=== PATIENT | female | born 1955 | race African-American/Black ===

== ENCOUNTER 2021-09-02 14:33 | Emergency (ER) | payer BC, OTHER ==
[~2021-09-02] VITALS: Ht 160 cm; Wt 100.0 kg
[~2021-09-02 14:33] MED LIST: IBUPROFEN; NAPR-1176
[2021-09-02 14:41] VITALS: BP 144/84
[2021-09-02] MEDS ORDERED: ALBUTEROL (0.083%) 2.5MG/3ML NEB HHN STA (14:45)
[2021-09-02] MEDS ORDERED: IPRATROPIUM BROMIDE (0.02%) 0.5MG/2.5ML NEB HHN STA (14:45)
== END 2021-09-03 00:19 | disposition left against medical advice (07) ==
LOC: ER 14:33
DX: J06.9 Acute upper respiratory infection, unspecified (principal)
CPT/HCPCS: 71045; 93005; 99283

== ENCOUNTER 2022-09-18 05:16 | Inpatient (IN) | payer OTHER, BC, MEDICAID ==
[~2022-09-18] VITALS: Ht 170.2 cm; Wt 102.1 kg
[2022-09-18] MEDS ORDERED: MAGNESIUM 2 G PREMIX 50 ML IV STA (05:25)
[2022-09-18] MEDS ORDERED: METHYLPREDNISOLONE SOD SUCC 125 MG/2 ML VIAL IV STA (05:25)
[2022-09-18] MEDS ORDERED: IPRATROPIUM BROMIDE (0.02%) 0.5MG/2.5ML NEB HHN STA (05:25)
[2022-09-18] MEDS ORDERED: ALBUTEROL (0.083%) 2.5MG/3ML NEB HHN STA (05:25)
[2022-09-18 06:01] LABS: BG BASE EXCESS 0.3 mmol/L (-2.0-2.0); BG CARBOXYHEMOGLOBIN 0.9 % (0.5-1.5); BG FRACTION INSPIRED OXYGEN 50; BG HCO3 ACT 27.2 mmol/L (22.0-26.0); BG METHEMOGLOBIN 0.4 % (0.0-1.5); BG OXYHEMOGLOBIN 97.7 % (94.0-97.0); BG PCO2 52.7 mmHg (35.0-45.0); BG PH 7.331 (7.350-7.450); BG SAMPLE SITE RIGHT RADIAL; BG TOTAL HEMOGLOBIN 15.2 g/dL (12.0-18.0); BG VENT MODE MASK - BIPAP
[2022-09-18 06:07] LABS: CHLORIDE 107 mEq/L (98-107)
[2022-09-18 08:40] LABS: BASOPHILS % 0.5 % (0.0-2.0); EOSINOPHILS % 1.3 % (0.0-5.0); HEMATOCRIT. 41.5 % (36.0-48.0); HEMOGLOBIN. 14.1 g/dL (12.0-16.0); LYMPHOCYTES % 14.5 % (20.0-50.0); MEAN CORPUSCULAR HEMOGLOBIN 30.4 pg (28.0-32.0); MEAN CORPUSCULAR VOLUME 89.4 fL (81.0-99.0); MEAN PLATELET VOLUME 8.9 fl (7.4-10.4); MONOCYTES % 2.2 % (2.0-8.0); NEUTROPHILS % 81.5 % (40.0-76.0); PLATELET 254 x1000/uL (130-400); RED BLOOD CELL COUNT 4.63 mill/uL (4.2-5.4); RED CELL DISTRIBUTION WIDTH 13.9 % (11.6-14.6)
[2022-09-18] MEDS ORDERED: IPRATROPIUM/ALBUTEROL 0.5-3(2.5)MG/3ML NEB HHN SCH (16:45)
[2022-09-18] MEDS ORDERED: ACETAMINOPHEN 325MG TABLET PO PRN (16:45)
[2022-09-18] MEDS ORDERED: ONDANSETRON HCL 4MG/2ML INJ IV PRN (16:45)
[2022-09-18] MEDS ORDERED: CLONIDINE 0.1MG TABLET PO PRN (16:45)
[2022-09-18] MEDS ORDERED: AZITHROMYCIN 500MG/250ML 250 ML IV NR (17:00)
[2022-09-18] MEDS ORDERED: CEFTRIAXONE 1 G PREMIX 50 ML IV SCH (17:00)
[2022-09-18] MEDS: METHYLPREDNISOLONE SOD SUCC 40 MG/ML VIAL IV SCH (17:22)
[2022-09-19 00:14] LABS: CREATINE KINASE 54 IU/L (26-192); CREATINE KINASE MB FRACTION < 1.0 ng/mL (0.5-3.6)
[2022-09-19] MEDS: METHYLPREDNISOLONE SOD SUCC 40 MG/ML VIAL IV SCH ×3 (01:00→17:51)
[2022-09-19] MEDS: IPRATROPIUM BROMIDE (0.02%) 0.5MG/2.5ML NEB HHN SCH ×9 (01:00→23:37)
[2022-09-19] MEDS: ALBUTEROL (0.083%) 2.5MG/3ML NEB HHN SCH ×9 (01:00→23:37)
[2022-09-19 05:04] LABS: BASOPHILS % 0.7 % (0.0-2.0); EOSINOPHILS % 0.1 % (0.0-5.0); HEMATOCRIT. 38.6 % (36.0-48.0); HEMOGLOBIN. 12.9 g/dL (12.0-16.0); LYMPHOCYTES % 18.5 % (20.0-50.0); MEAN CORPUSCULAR HEMOGLOBIN 29.8 pg (28.0-32.0); MEAN PLATELET VOLUME 8.9 fl (7.4-10.4); MONOCYTES % 6.7 % (2.0-8.0); PLATELET 247 x1000/uL (130-400); RED BLOOD CELL COUNT 4.34 mill/uL (4.2-5.4)
[2022-09-19 05:37] LABS: CHLORIDE 105 mEq/L (98-107)
[2022-09-19 05:51] LABS: CREATINE KINASE 45 IU/L (26-192); CREATINE KINASE MB FRACTION < 1.0 ng/mL (0.5-3.6)
[2022-09-19 08:06] LABS: BG BASE EXCESS 4.5 mmol/L (-2.0-2.0); BG CARBOXYHEMOGLOBIN 0.3 % (0.5-1.5); BG DEOXYHEMOGLOBIN 5.8 % (0.0-5.0); BG HCO3 ACT 29.4 mmol/L (22.0-26.0); BG METHEMOGLOBIN 0.1 % (0.0-1.5); BG OXYGEN SATURATION 94.2 % (92.0-98.5); BG OXYHEMOGLOBIN 93.8 % (94.0-97.0); BG PCO2 44.6 mmHg (35.0-45.0); BG PH 7.437 (7.350-7.450); BG PO2 71.8 mmHg (75.0-100.0); BG SAMPLE SITE RIGHT RADIAL; BG TOTAL HEMOGLOBIN 15.6 g/dL (12.0-18.0); BG TOTAL RESPIRATORY RATE 20 b/min; BG VENT MODE MASK - BIPAP
[2022-09-19] MEDS: PANTOPRAZOLE SODIUM 40 MG/VIAL IV SCH (09:00)
[2022-09-19 13:37] VITALS: BP 164/83
[2022-09-19 14:00] VITALS: BP 126/70
[2022-09-19 16:00] VITALS: BP 127/60
[2022-09-19] MEDS ORDERED: AZITHROMYCIN 500 MG in DEXT 5% WATER 250 ML IV SCH (17:00)
[2022-09-19] MEDS: CEFTRIAXONE 1,000 MG in DEXTROSE 5% WATER 50 ML IV SCH (17:51)
[2022-09-19 18:00] VITALS: BP 129/77
[2022-09-19 20:00] VITALS: BP 115/63
[2022-09-19] MEDS: AZITHROMYCIN 500 MG in DEXT 5% WATER 250 ML IV SCH (21:30)
[2022-09-20] VITALS (10 sets, daily range): BP systolic 119–145; BP diastolic 55–82
[2022-09-20] MEDS: METHYLPREDNISOLONE SOD SUCC 40 MG/ML VIAL IV SCH ×3 (00:37→16:53)
[2022-09-20] MEDS: IPRATROPIUM BROMIDE (0.02%) 0.5MG/2.5ML NEB HHN SCH ×4 (04:01→20:24)
[2022-09-20] MEDS: ALBUTEROL (0.083%) 2.5MG/3ML NEB HHN SCH ×4 (04:01→20:25)
[2022-09-20] MEDS: PANTOPRAZOLE SODIUM 40 MG/VIAL IV SCH (08:39)
[2022-09-20] MEDS: CEFTRIAXONE 1,000 MG in DEXTROSE 5% WATER 50 ML IV SCH (16:52)
[2022-09-20] MEDS: AZITHROMYCIN 500 MG in DEXT 5% WATER 250 ML IV SCH (20:54)
[2022-09-21] VITALS (7 sets, daily range): BP systolic 117–146; BP diastolic 53–89
[2022-09-21] MEDS: IPRATROPIUM BROMIDE (0.02%) 0.5MG/2.5ML NEB HHN SCH ×4 (00:18→12:50)
[2022-09-21] MEDS: ALBUTEROL (0.083%) 2.5MG/3ML NEB HHN SCH ×4 (00:18→12:50)
[2022-09-21] MEDS: METHYLPREDNISOLONE SOD SUCC 40 MG/ML VIAL IV SCH ×2 (00:48→10:16)
[2022-09-21] MEDS ORDERED: FAMOTIDINE 20MG/2ML VIAL IV SCH (09:00)
[2022-09-21] MEDS ORDERED: P20 MT (09:58)
== END 2022-09-21 20:21 | disposition home or self-care (01) | DRG 189 ==
LOC: ER 05:16 → EDBEDREQTM 08:46 → EDBEDREQ 08:46 → 5EST 09-19 12:57
PROVIDERS: ADMIT Internal Medicine; ATTEND Internal Medicine
PROC: 5A09357 Assistance with Respiratory Ventilation, Less than 24 Consecutive Hours, Continuous Positive Airway Pressure (ICD-10-PCS; principal; 2022-09-18)
DX: J96.01 Acute respiratory failure with hypoxia (principal); J44.1 Chronic obstructive pulmonary disease with (acute) exacerbation; J96.02 Acute respiratory failure with hypercapnia; Z20.822 Contact with and (suspected) exposure to COVID-19; R94.4 Abnormal results of kidney function studies; E66.9 Obesity, unspecified; Z79.899 Other long term (current) drug therapy; Z68.35 Body mass index [BMI] 35.0-35.9, adult; Z87.891 Personal history of nicotine dependence
CPT/HCPCS: 36415; 36600; 71045; 80048; 80053; 82375; 82550; 82553; 82805; 83880; 84484; 85025; 85379; 87426; 87804; 93005; 93306; 93970; 94640; 94660; 99291; C9113; C9803; J0456; J0696; J2405; J2920; J2930; J3475; J3490; J7060

== ENCOUNTER 2022-11-17 22:16 | Inpatient (IN) | payer OTHER, BC, MEDICAID ==
[~2022-11-17] VITALS: Ht 160 cm; Wt 102.1 kg
[~2022-11-17 22:16] MED LIST changes: +ALBUTEROL; +ATOR40TA70 PO; +FLUT1DIS3 INH; +P20 MT
[2022-11-18 00:21] LABS: BASOPHILS % 0.8 % (0.0-2.0); EOSINOPHILS % 5.5 % (0.0-5.0); HEMATOCRIT. 40.1 % (36.0-48.0); HEMOGLOBIN. 13.3 g/dL (12.0-16.0); LYMPHOCYTES % 49.4 % (20.0-50.0); MEAN CORPUSCULAR HEMOGLOBIN 30.1 pg (28.0-32.0); MEAN PLATELET VOLUME 8.8 fl (7.4-10.4); MONOCYTES % 6.4 % (2.0-8.0); NEUTROPHILS % 37.9 % (40.0-76.0); PLATELET 268 x1000/uL (130-400); RED BLOOD CELL COUNT 4.41 mill/uL (4.2-5.4); RED CELL DISTRIBUTION WIDTH 14.2 % (11.6-14.6)
[2022-11-18 00:49] LABS: CHLORIDE 106 mEq/L (98-107)
[2022-11-18] MEDS ORDERED: METHYLPREDNISOLONE SOD SUCC 125 MG/2 ML VIAL IV STA (03:28)
[2022-11-18] MEDS ORDERED: IPRATROPIUM BROMIDE (0.02%) 0.5MG/2.5ML NEB HHN STA (03:28)
[2022-11-18] MEDS ORDERED: MAGNESIUM 2 G PREMIX 50 ML IV ONE (03:30)
[2022-11-18] MEDS: ALBUTEROL (0.083%) 2.5MG/3ML NEB HHN SCH ×4 (04:37→22:00)
[2022-11-18 12:00] VITALS: BP 113/65
[2022-11-18] MEDS ORDERED: ALBU90AE INH (12:27)
[2022-11-18] MEDS ORDERED: LEVO-65 MT (12:28)
[2022-11-18] MEDS ORDERED: IPRATROPIUM/ALBUTEROL 0.5-3(2.5)MG/3ML NEB HHN SCH (12:45)
[2022-11-18] MEDS ORDERED: ONDANSETRON HCL 4MG/2ML INJ IV PRN (12:45)
[2022-11-18] MEDS: ENOXAPARIN 30MG/0.3ML SYR SUBCUT SCH (14:21)
[2022-11-18] MEDS: LEVOFLOXACIN 500MG PREMIX 100 ML IV SCH (14:22)
[2022-11-18 16:00] VITALS: BP 127/55
[2022-11-18 17:08] LABS: CREATINE KINASE MB FRACTION 1.3 ng/mL (0.5-3.6)
[2022-11-18 20:00] VITALS: BP 115/59
[2022-11-18] MEDS: ACETAMINOPHEN 325MG TABLET PO PRN (20:12)
[2022-11-18] MEDS: IPRATROPIUM BROMIDE (0.02%) 0.5MG/2.5ML NEB HHN SCH ×2 (20:35→22:00)
[2022-11-18 23:55] LABS: CREATINE KINASE MB FRACTION 1.1 ng/mL (0.5-3.6)
[2022-11-19] VITALS: BP 136/70
[2022-11-19] MEDS: IPRATROPIUM BROMIDE (0.02%) 0.5MG/2.5ML NEB HHN SCH ×5 (01:49→21:01)
[2022-11-19] MEDS: ALBUTEROL (0.083%) 2.5MG/3ML NEB HHN SCH ×5 (01:49→21:01)
[2022-11-19 04:00] VITALS: BP 127/63
[2022-11-19] MEDS: ENOXAPARIN 30MG/0.3ML SYR SUBCUT SCH ×2 (05:13→17:09)
[2022-11-19 07:33] LABS: BG BASE EXCESS 3.7 mmol/L (-2.0-2.0); BG CARBOXYHEMOGLOBIN 0.1 % (0.5-1.5); BG DEOXYHEMOGLOBIN 7.4 % (0.0-5.0); BG HCO3 ACT 29.9 mmol/L (22.0-26.0); BG METHEMOGLOBIN 0.2 % (0.0-1.5); BG OXYGEN SATURATION 92.6 % (92.0-98.5); BG OXYHEMOGLOBIN 92.3 % (94.0-97.0); BG PCO2 51.4 mmHg (35.0-45.0); BG PH 7.382 (7.350-7.450); BG SAMPLE SITE RIGHT RADIAL; BG TOTAL HEMOGLOBIN 14.2 g/dL (12.0-18.0); BG VENT MODE ROOM AIR
[2022-11-19 08:00] VITALS: BP 125/68
[2022-11-19 12:19] VITALS: BP 106/66
[2022-11-19] MEDS: LEVOFLOXACIN 500MG PREMIX 100 ML IV SCH (12:58)
[2022-11-19] MEDS: METHYLPREDNISOLONE SOD SUCC 40 MG/ML VIAL IV SCH ×2 (12:58→21:01)
[2022-11-19 20:01] VITALS: BP 128/72
[2022-11-19] MEDS ORDERED: IOHEXOL-350 100 ML BOTTLE ONE (20:50)
[2022-11-20 00:01] VITALS: BP 144/79
[2022-11-20] MEDS: ALBUTEROL (0.083%) 2.5MG/3ML NEB HHN SCH ×3 (00:24→10:46)
[2022-11-20] MEDS: IPRATROPIUM BROMIDE (0.02%) 0.5MG/2.5ML NEB HHN SCH ×3 (00:24→10:47)
[2022-11-20 03:55] VITALS: BP 116/53
[2022-11-20] MEDS: METHYLPREDNISOLONE SOD SUCC 40 MG/ML VIAL IV SCH ×2 (04:02→12:19)
[2022-11-20] MEDS: ACETAMINOPHEN 325MG TABLET PO PRN (04:02)
[2022-11-20] MEDS: ENOXAPARIN 30MG/0.3ML SYR SUBCUT SCH (05:16)
[2022-11-20 08:00] VITALS: BP 138/78
[2022-11-20 12:00] VITALS: BP 120/63
[2022-11-20] MEDS ORDERED: P20 MT (12:27)
[2022-11-20 13:35] VITALS: BP 120/63
[2022-11-20] MEDS ORDERED: LEVOFLOXACIN 500MG TABLET PO SCH (14:00)
== END 2022-11-20 15:45 | disposition home or self-care (01) | DRG 192 ==
LOC: ER 22:16 → 7WST 11-18 06:16
PROVIDERS: ADMIT Internal Medicine; ATTEND Internal Medicine
DX: J44.1 Chronic obstructive pulmonary disease with (acute) exacerbation (principal); I10 Essential (primary) hypertension; F17.200 Nicotine dependence, unspecified, uncomplicated; Z20.822 Contact with and (suspected) exposure to COVID-19; Z79.899 Other long term (current) drug therapy; Z79.51 Long term (current) use of inhaled steroids
CPT/HCPCS: 36415; 36600; 71045; 71275; 80053; 82375; 82550; 82553; 82805; 83605; 83880; 84484; 85025; 85379; 87426; 93005; 94640; 97162; 99285; C9803; J1650; J1956; J2920; J2930; J3475; Q9967

== ENCOUNTER 2023-08-27 14:16 | Emergency (ER) | payer OTHER, BC, MEDICAID, MEDICARE ==
[~2023-08-27] VITALS: Ht 165.1 cm; Wt 68.0 kg
[~2023-08-27 14:16] MED LIST changes: +ALBU90AE INH; -NAPR-1176
[2023-08-27 14:31] VITALS: TEMP 98.3; O2SAT 96
[2023-08-27] MEDS ORDERED: PREDNISONE 20MG TABLET PO ONE (15:30)
[2023-08-27] MEDS ORDERED: IPRATROPIUM/ALBUTEROL 0.5-3(2.5)MG/3ML NEB HHN ONE (15:30)
[2023-08-27] MEDS ORDERED: ALBUTEROL (0.083%) 2.5MG/3ML NEB HHN ONE (15:30)
[2023-08-27 15:45] VITALS: PULSE 76; RESP 19
[2023-08-27 16:21] LABS: HEMATOCRIT. 37.5 % (36.0-48.0); HEMOGLOBIN. 13.1 g/dL (12.0-16.0); MEAN CORPUSCULAR HEMOGLOBIN 31.3 pg (28.0-32.0); MEAN CORPUSCULAR VOLUME 89.5 fL (81.0-99.0); MEAN PLATELET VOLUME 8.6 fl (7.4-10.4); PLATELET 226 x1000/uL (130-400); RED BLOOD CELL COUNT 4.19 mill/uL (4.2-5.4); RED CELL DISTRIBUTION WIDTH 13.3 % (11.6-14.6); WHITE BLOOD COUNT 4.6 x1000/uL (4.5-11.0)
[2023-08-27 16:34] LABS: DIFFERENTIAL COMMENT 1
[2023-08-27 16:45] LABS: ATYPICAL LYMPHOCYTES 12; MICROCYTOSIS 1+; PLATELET ESTIMATE NORMAL; SMUDGE CELLS 1+
[2023-08-27] MEDS ORDERED: P50 MT (16:55)
[2023-08-27] MEDS ORDERED: ALBU6.7H15 INH (16:55)
[2023-08-27 17:02] LABS: ALANINE AMINOTRANSFERASE 24 IU/L (10-49); ASPARTATE AMINOTRANSFERASE 19 IU/L (<34); BILIRUBIN TOTAL 0.4 mg/dL (0.1-1.0); CALCIUM 8.7 mg/dL (8.7-10.4); CARBON DIOXIDE 29 mEq/L (21-32); CHLORIDE 107 mEq/L (98-107); CREATININE 0.6 mg/dL (0.6-1.0); GLUCOSE 114 mg/dL (70-105); POTASSIUM 3.3 mEq/L (3.5-5.1); SODIUM 143 mEq/L (136-145); TROPONIN I HIGH SENSITIVITY 4 ng/L (3.0-34); UREA NITROGEN BLOOD 10 mg/dL (9-23)
[2023-08-27] MEDS ORDERED: POTASSIUM CHLORIDE 20MEQ TABLET SR PO ONE (17:30)
[2023-08-27 19:02] VITALS: BP 121/65; PULSE 77
== END 2023-08-27 19:08 | disposition home or self-care (01) ==
LOC: ER 14:16
DX: J44.1 Chronic obstructive pulmonary disease with (acute) exacerbation (principal); F17.200 Nicotine dependence, unspecified, uncomplicated
CPT/HCPCS: 99285; 71045; 80053; 83880; 85025; 84484; 36415; 94640; 93005; J7512

== ENCOUNTER 2023-12-16 09:13 | Inpatient (IN) | payer OTHER, BC ==
[~2023-12-16] VITALS: Ht 160 cm; Wt 102.5 kg
[~2023-12-16 09:13] MED LIST changes: +ALBU6.7H15 INH; +P50 MT
[2023-12-16 09:25] VITALS: RESP 34
[2023-12-16] MEDS: METHYLPREDNISOLONE SOD SUCC 125MG/2ML (ACT-O-VIAL) IV STA (09:29)
[2023-12-16 09:32] VITALS: RESP 34
[2023-12-16] MEDS: ALBUTEROL (0.083%) 2.5MG/3ML NEB HHN STA (09:32)
[2023-12-16] MEDS: IPRATROPIUM BROMIDE (0.02%) 0.5MG/2.5ML NEB HHN STA (09:33)
[2023-12-16 09:36] LABS: EOSINOPHILS % 8.7 % (0.0-5.0); HEMATOCRIT. 42.3 % (36.0-48.0); HEMOGLOBIN. 14.4 g/dL (12.0-16.0); LYMPHOCYTES % 51.6 % (20.0-50.0); MEAN CORPUSCULAR HEMOGLOBIN 31.3 pg (28.0-32.0); MEAN CORPUSCULAR VOLUME 92.2 fL (81.0-99.0); MEAN PLATELET VOLUME 8.4 fl (7.4-10.4); MONOCYTES % 8.9 % (2.0-8.0); NEUTROPHILS % 29.8 % (40.0-76.0); PLATELET 226 x1000/uL (130-400); RED BLOOD CELL COUNT 4.59 mill/uL (4.2-5.4); RED CELL DISTRIBUTION WIDTH 13.8 % (11.6-14.6); WHITE BLOOD COUNT 5.7 x1000/uL (4.5-11.0)
[2023-12-16 09:54] LABS: ALANINE AMINOTRANSFERASE 57 IU/L (10-49); ALBUMIN 4.7 g/dL (3.2-4.8); ASPARTATE AMINOTRANSFERASE 30 IU/L (<34); BILIRUBIN TOTAL 1.1 mg/dL (0.1-1.0); CALCIUM 9.1 mg/dL (8.7-10.4); CARBON DIOXIDE 27 mEq/L (21-32); CHLORIDE 110 mEq/L (98-107); CREATININE 0.6 mg/dL (0.6-1.0); GLUCOSE 108 mg/dL (70-105); POTASSIUM 3.6 mEq/L (3.5-5.1); PROTEIN TOTAL 7.4 g/dL (6.0-8.3); SODIUM 141 mEq/L (136-145); TROPONIN I HIGH SENSITIVITY 10 ng/L (3.0-34); UREA NITROGEN BLOOD 8 mg/dL (9-23)
[2023-12-16 11:11] LABS: BG BASE EXCESS -1.4 mmol/L (-2.0-2.0); BG CARBOXYHEMOGLOBIN 0.4 % (0.5-1.5); BG DEOXYHEMOGLOBIN 1.7 % (0.0-5.0); BG FRACTION INSPIRED OXYGEN 50; BG METHEMOGLOBIN 0.4 % (0.0-1.5); BG OXYGEN SATURATION 98.3 % (92.0-98.5); BG OXYHEMOGLOBIN 97.5 % (94.0-97.0); BG PCO2 48.3 mmHg (35.0-45.0); BG PH 7.332 (7.350-7.450); BG PO2 141.1 mmHg (75.0-100.0); BG SAMPLE SITE RIGHT RADIAL; BG VENT MODE MASK - BIPAP
[2023-12-16 12:55] VITALS: RESP 22
[2023-12-16 16:01] VITALS: RESP 34
[2023-12-16] MEDS ORDERED: DOCUSATE SODIUM 100MG CAPSULE PO PRN (16:15)
[2023-12-16] MEDS ORDERED: CLONIDINE 0.1MG TABLET PO PRN (16:15)
[2023-12-16] MEDS ORDERED: DEXTROSE 50% WATER 50ML SYRINGE IV PRN (16:15)
[2023-12-16] MEDS ORDERED: ACETAMINOPHEN 325MG TABLET PO PRN (16:15)
[2023-12-16] MEDS ORDERED: ONDANSETRON HCL 4MG/2ML INJ IV PRN (16:15)
[2023-12-16] MEDS ORDERED: IPRATROPIUM/ALBUTEROL 0.5-3(2.5)MG/3ML NEB HHN PRN (16:15)
[2023-12-16 18:04] LABS: D-DIMER 0.77 mg/L FEU (<0.50); PROTHROMBIN TIME 11.1 sec (9.6-11.0)
[2023-12-16] MEDS: INSULIN LISPRO 100 UNITS/ML SUBCUT SCH (18:20)
[2023-12-16] MEDS: BLOOD SUGAR DIAGNOSTIC STRIP TEST SCH (18:25)
[2023-12-16 20:00] VITALS: RESP 25
[2023-12-17] VITALS (14 sets, daily range): BP systolic 116–135; BP diastolic 60–79; PULSE 67–90; RESP 15–25; TEMP 97.2–97.5; O2SAT 96–99
[2023-12-17 02:51] LABS: CREATINE KINASE MB FRACTION 1.7 ng/mL (0.5-3.6)
[2023-12-17] MEDS ORDERED: FLUT1BLS3 IH (04:52)
[2023-12-17] MEDS: IPRATROPIUM/ALBUTEROL 0.5-3(2.5)MG/3ML NEB HHN SCH (08:00)
[2023-12-17 08:01] LABS: EOSINOPHILS % 0.1 % (0.0-5.0); HEMOGLOBIN. 12.7 g/dL (12.0-16.0); LYMPHOCYTES % 24.2 % (20.0-50.0); MEAN CORPUSCULAR HEMOGLOBIN 30.5 pg (28.0-32.0); MEAN CORPUSCULAR HGB CONC 33.5 g/dL (31.0-37.0); MEAN PLATELET VOLUME 8.9 fl (7.4-10.4); NEUTROPHILS % 64.7 % (40.0-76.0); PLATELET 210 x1000/uL (130-400); RED BLOOD CELL COUNT 4.18 mill/uL (4.2-5.4); RED CELL DISTRIBUTION WIDTH 13.8 % (11.6-14.6)
[2023-12-17 08:23] LABS: ALANINE AMINOTRANSFERASE 44 IU/L (10-49); ALBUMIN 4.4 g/dL (3.2-4.8); ASPARTATE AMINOTRANSFERASE 19 IU/L (<34); BILIRUBIN TOTAL 0.6 mg/dL (0.1-1.0); CALCIUM 9.1 mg/dL (8.7-10.4); CARBON DIOXIDE 29 mEq/L (21-32); CHLORIDE 110 mEq/L (98-107); CREATINE KINASE 65 IU/L (34-145); CREATINE KINASE MB FRACTION 1.7 ng/mL (0.5-3.6); CREATININE 0.8 mg/dL (0.6-1.0); GLUCOSE 138 mg/dL (70-105); POTASSIUM 3.9 mEq/L (3.5-5.1); PROTEIN TOTAL 6.8 g/dL (6.0-8.3); SODIUM 141 mEq/L (136-145); UREA NITROGEN BLOOD 21 mg/dL (9-23)
[2023-12-17 08:54] LABS: TROPONIN I HIGH SENSITIVITY 57 ng/L (3.0-34)
[2023-12-17 13:45] LABS: BG BASE EXCESS 1.2 mmol/L (-2.0-2.0); BG FRACTION INSPIRED OXYGEN 21; BG HCO3 ACT 26.5 mmol/L (22.0-26.0); BG METHEMOGLOBIN 0.3 % (0.0-1.5); BG OXYHEMOGLOBIN 89.7 % (94.0-97.0); BG PCO2 44.3 mmHg (35.0-45.0); BG PH 7.394 (7.350-7.450); BG PO2 60.5 mmHg (75.0-100.0); BG SAMPLE SITE RIGHT RADIAL; BG TOTAL HEMOGLOBIN 13.8 g/dL (12.0-18.0); BG VENT MODE ROOM AIR
[2023-12-17] MEDS ORDERED: IOHEXOL-350 100 ML BOTTLE ONE (13:59)
[2023-12-17 15:40] LABS: CLARITY URINE CLEAR (CLEAR); COLOR URINE YELLOW (YELLOW); GLUCOSE URINE NEGATIVE (NEGATIVE); KETONES URINE NEGATIVE (NEGATIVE); LEUKOCYTE ESTERASE URINE NEGATIVE (NEGATIVE); NITRITE URINE NEGATIVE (NEGATIVE); OCCULT BLOOD URINE NEGATIVE (NEGATIVE); PROTEIN URINE NEGATIVE (NEGATIVE); SPECIFIC GRAVITY URINE 1.075 (1.005-1.030); UROBILINOGEN URINE 0.2 E.U./dL (0.2-1.0)
[2023-12-17 15:59] LABS: *AMPHETAMINES SCREEN URINE NEGATIVE (NEGATIVE); *BARBITURATES SCREEN URINE NEGATIVE (NEGATIVE); *BENZODIAZEPINES SCREEN URINE NEGATIVE (NEGATIVE); *COCAINE SCREEN URINE NEGATIVE (NEGATIVE); CANNABINOID URINE SCREEN NEGATIVE (NEGATIVE); ECSTASY MDMA SCREEN URINE NEGATIVE (NEGATIVE); METHADONE URINE SCREEN Neg (NEGATIVE); OPIATES URINE SCREEN NEGATIVE (NEGATIVE); PHENCYCLIDINE URINE SCREEN PRESUMTIVE POSITIVE (NEGATIVE)
[2023-12-17] MEDS: METHYLPREDNISOLONE SOD SUCC 40MG/ML (ACT-O-VIAL) IV NR (16:37)
[2023-12-17] MEDS: ACETAMINOPHEN 325MG TABLET PO PRN (17:39)
[2023-12-17] MEDS ORDERED: NYSTATIN 100,000 UNITS/GM CREAM 15GM TOP SCH (21:00)
== END 2023-12-17 20:00 | disposition home or self-care (01) | DRG 191 ==
LOC: ER 09:13 → 5EST 12:41 → EDBEDREQTM 12:44 → EDBEDREQ 12:44 → EDBEDREQSVC 12:44
PROVIDERS: ADMIT Internal Medicine; ATTEND Internal Medicine
PROC: 5A09357 Assistance with Respiratory Ventilation, Less than 24 Consecutive Hours, Continuous Positive Airway Pressure (ICD-10-PCS; principal; 2023-12-16)
DX: J44.1 Chronic obstructive pulmonary disease with (acute) exacerbation (principal); Z68.41 Body mass index [BMI] 40.0-44.9, adult; E66.9 Obesity, unspecified; Z20.822 Contact with and (suspected) exposure to COVID-19; Z87.891 Personal history of nicotine dependence; E78.00 Pure hypercholesterolemia, unspecified; R74.01 Elevation of levels of liver transaminase levels
CPT/HCPCS: 36415; 36600; 71045; 71275; 76700; 80053; 80305; 81003; 82375; 82550; 82553; 82805; 82962; 83880; 84484; 85025; 85379; 87426; 93005; 93970; 94640; 94660; 99291; J1815; J2920; J2930; Q9967

== ENCOUNTER 2025-05-31 20:05 | Emergency (ER) | payer MEDICARE, BC ==
[~2025-05-31] VITALS: Ht 172.7 cm; Wt 100.0 kg
[~2025-05-31 20:05] MED LIST changes: +FLUT1BLS3 IH
[2025-05-31 20:27] VITALS: O2SAT 100
[2025-05-31 21:18] LABS: BASOPHILS % 1.1 % (0.0-2.0); EOSINOPHILS % 2.8 % (0.0-5.0); HEMATOCRIT. 42.2 % (36.0-48.0); HEMOGLOBIN. 14.2 g/dL (12.0-16.0); LYMPHOCYTES % 31.6 % (20.0-50.0); MEAN PLATELET VOLUME 8.8 fl (7.4-10.4); MONOCYTES % 10.2 % (2.0-8.0); NEUTROPHILS % 54.3 % (40.0-76.0); PLATELET 262 x1000/uL (130-400); RED BLOOD CELL COUNT 4.75 mill/uL (4.2-5.4); RED CELL DISTRIBUTION WIDTH 13.5 % (11.6-14.6)
[2025-05-31 21:33] LABS: CREATININE 0.8 mg/dL (0.6-1.0); UREA NITROGEN BLOOD < 5 mg/dL (9-23)
[2025-05-31] MEDS: POTASSIUM CHLORIDE 20MEQ/PACKET PO SCH (22:19)
[2025-05-31 22:50] LABS: *AMPHETAMINES SCREEN URINE NEGATIVE (NEGATIVE); *BARBITURATES SCREEN URINE NEGATIVE (NEGATIVE); *BENZODIAZEPINES SCREEN URINE NEGATIVE (NEGATIVE); *COCAINE SCREEN URINE NEGATIVE (NEGATIVE); METHADONE URINE SCREEN NEGATIVE (NEGATIVE)
[2025-05-31 22:51] LABS: CANNABINOID URINE SCREEN NEGATIVE (NEGATIVE); ECSTASY MDMA SCREEN URINE NEGATIVE (NEGATIVE); OPIATES URINE SCREEN NEGATIVE (NEGATIVE); PHENCYCLIDINE URINE SCREEN PRESUMTIVE POSITIVE (NEGATIVE)
[2025-06-01] MEDS: ACETAMINOPHEN 500MG TABLET PO NR
[2025-06-01 00:28] VITALS: BP 151/89; PULSE 72; RESP 13; TEMP 36.8; O2SAT 97
== END 2025-06-01 00:56 | disposition home or self-care (01) ==
LOC: ER 20:05
DX: F16.10 Hallucinogen abuse, uncomplicated (principal); E78.00 Pure hypercholesterolemia, unspecified; J44.9 Chronic obstructive pulmonary disease, unspecified; Z79.899 Other long term (current) drug therapy
CPT/HCPCS: 36415; 71045; 80048; 80305; 80320; 85025; 93005; 99285; G0480

== ENCOUNTER 2025-07-28 14:10 | Inpatient (IN) | payer MEDICARE, BC ==
[~2025-07-28] VITALS: Ht 160 cm; Wt 104.3 kg
[2025-07-28] MEDS: ALBUTEROL (0.083%) 2.5MG/3ML NEB HHN SCH (14:36)
[2025-07-28 14:37] VITALS: PULSE 84; RESP 30; O2SAT 91
[2025-07-28] MEDS: IPRATROPIUM BROMIDE (0.02%) 0.5MG/2.5ML NEB HHN SCH (14:37)
[2025-07-28] MEDS: METHYLPREDNISOLONE SOD SUCC 125MG/2ML (ACT-O-VIAL) IV SCH ×2 (14:46→19:00)
[2025-07-28 15:41] VITALS: PULSE 95; RESP 26
[2025-07-28 15:54] LABS: BASOPHILS % 1.1 % (0.0-2.0); EOSINOPHILS % 3.4 % (0.0-5.0); HEMATOCRIT. 44.4 % (36.0-48.0); HEMOGLOBIN. 14.4 g/dL (12.0-16.0); LYMPHOCYTES % 29.4 % (20.0-50.0); MEAN PLATELET VOLUME 10.0 fl (7.4-10.4); MONOCYTES % 14.3 % (2.0-8.0); NEUTROPHILS % 51.8 % (40.0-76.0); PLATELET 218 x1000/uL (130-400); RED BLOOD CELL COUNT 4.91 mill/uL (4.2-5.4); RED CELL DISTRIBUTION WIDTH 13.6 % (11.6-14.6)
[2025-07-28 16:07] LABS: CREATININE 0.6 mg/dL (0.6-1.0); UREA NITROGEN BLOOD 8 mg/dL (9-23)
[2025-07-28 16:26] VITALS: BP 178/99; PULSE 81; RESP 25; TEMP 37.0852
[2025-07-28 16:29] LABS: TROPONIN I HIGH SENSITIVITY 7 ng/L (3.0-34)
[2025-07-28] MEDS: FUROSEMIDE 40MG/4ML VIAL IVP SCH (17:00)
[2025-07-28] MEDS ORDERED: ZOLPIDEM TARTRATE 5MG TABLET PO PRN (17:00)
[2025-07-28] MEDS ORDERED: ENOXAPARIN 40MG/0.4ML SYR SUBCUT SCH (17:00)
[2025-07-28] MEDS ORDERED: ONDANSETRON HCL 4MG/2ML INJ IV PRN (17:00)
[2025-07-28] MEDS ORDERED: DOCUSATE SODIUM 100MG CAPSULE PO PRN (17:00)
[2025-07-28 17:13] VITALS: BP 141/103; PULSE 85; RESP 28; TEMP 37.1; O2SAT 94
[2025-07-28] MEDS: GUAIFENESIN 200MG/10ML SUGAR FREE UDC PO PRN (17:40)
[2025-07-28] MEDS: DILTIAZEM HCL 5MG/ML 5ML VIAL IV ONE (17:42)
[2025-07-28 18:23] LABS: CLARITY URINE CLEAR (CLEAR); COLOR URINE YELLOW (YELLOW); GLUCOSE URINE NEGATIVE (NEGATIVE); KETONES URINE NEGATIVE (NEGATIVE); LEUKOCYTE ESTERASE URINE NEGATIVE (NEGATIVE); NITRITE URINE NEGATIVE (NEGATIVE); OCCULT BLOOD URINE 2+ (NEGATIVE); PH URINE 7.0 (4.5-8.0); PROTEIN URINE TRACE (NEGATIVE); SPECIFIC GRAVITY URINE 1.011 (1.005-1.030); UROBILINOGEN URINE 1.0 E.U./dL (0.2-1.0)
[2025-07-28 18:30] LABS: *AMPHETAMINES SCREEN URINE NEGATIVE (NEGATIVE); *BARBITURATES SCREEN URINE NEGATIVE (NEGATIVE); *BENZODIAZEPINES SCREEN URINE NEGATIVE (NEGATIVE); *COCAINE SCREEN URINE NEGATIVE (NEGATIVE); CANNABINOID URINE SCREEN NEGATIVE (NEGATIVE); ECSTASY MDMA SCREEN URINE NEGATIVE (NEGATIVE); METHADONE URINE SCREEN NEGATIVE (NEGATIVE); OPIATES URINE SCREEN NEGATIVE (NEGATIVE); PHENCYCLIDINE URINE SCREEN PRESUMTIVE POSITIVE (NEGATIVE)
[2025-07-28 19:02] LABS: WBC URINE 0-2 /hpf (0-2)
[2025-07-28 19:03] LABS: BACTERIA URINE 1+; SQUAMOUS EPITHELIAL CELL URINE 1+ /lpf (RARE/1+)
[2025-07-28 19:55] LABS: INFLUENZA TYPE A Presumptive Negative (Pres. Neg.)
[2025-07-28 19:56] LABS: INFLUENZA TYPE B Presumptive Negative (Pres. Neg.)
[2025-07-28 20:00] VITALS: BP 157/88; PULSE 98; RESP 24; TEMP 37; O2SAT 94
[2025-07-28 20:04] VITALS: PULSE 94; RESP 24; O2SAT 96
[2025-07-28] MEDS: IPRATROPIUM/ALBUTEROL 0.5-3(2.5)MG/3ML NEB HHN SCH (20:04)
[2025-07-28] MEDS: HYDRALAZINE HCL 50MG TABLET PO SCH (20:21)
[2025-07-28] MEDS: ENOXAPARIN 30MG/0.3ML SYR SUBCUT SCH (20:22)
[2025-07-28 20:24] LABS: HEMATOCRIT. 43.5 % (36.0-48.0); HEMOGLOBIN. 14.3 g/dL (12.0-16.0); MEAN PLATELET VOLUME 10.3 fl (7.4-10.4); PLATELET 233 x1000/uL (130-400); RED BLOOD CELL COUNT 4.79 mill/uL (4.2-5.4); RED CELL DISTRIBUTION WIDTH 13.6 % (11.6-14.6)
[2025-07-28 20:36] LABS: CREATININE 0.8 mg/dL (0.6-1.0)
[2025-07-28 20:37] LABS: TROPONIN I HIGH SENSITIVITY 9 ng/L (3.0-34); UREA NITROGEN BLOOD 8 mg/dL (9-23)
[2025-07-28] MEDS: METHYLPREDNISOLONE SOD SUCC 40MG/ML (ACT-O-VIAL) IV SCH (21:34)
[2025-07-29] VITALS (12 sets, daily range): BP systolic 144–156; BP diastolic 75–99; PULSE 88–107; RESP 15–37; TEMP 36.8–37.2; O2SAT 94–98
[2025-07-29 00:46] LABS: LYMPHOCYTES % MANUAL 12.0 % (20.0-60.0); MONOCYTES % MANUAL 1.0 % (2.0-8.0); NEUTROPHILS % MANUAL 87.0 % (45.0-75.0); PLATELET ESTIMATE NORMAL
[2025-07-29] MEDS: ATORVASTATIN CALCIUM 40MG TABLET PO SCH (08:23)
[2025-07-29 08:38] LABS: BASOPHILS % 0.3 % (0.0-2.0); EOSINOPHILS % 0.0 % (0.0-5.0); HEMATOCRIT. 42.9 % (36.0-48.0); HEMOGLOBIN. 14.3 g/dL (12.0-16.0); LYMPHOCYTES % 18.4 % (20.0-50.0); MEAN PLATELET VOLUME 10.4 fl (7.4-10.4); MONOCYTES % 6.6 % (2.0-8.0); NEUTROPHILS % 74.7 % (40.0-76.0); PLATELET 242 x1000/uL (130-400); RED BLOOD CELL COUNT 4.79 mill/uL (4.2-5.4); RED CELL DISTRIBUTION WIDTH 13.9 % (11.6-14.6)
[2025-07-29 08:51] LABS: CREATININE 0.7 mg/dL (0.6-1.0); UREA NITROGEN BLOOD 11 mg/dL (9-23)
[2025-07-29] MEDS: MAGNESIUM 1 G PREMIX 100 ML IV NR (13:01)
[2025-07-29] MEDS: BENZONATATE 100MG CAPSULE PO PRN (15:49)
[2025-07-29] MEDS: MONTELUKAST SODIUM 10MG TABLET PO SCH (17:00)
[2025-07-29] MEDS: BUDESONIDE 0.5MG/2ML NEB HHN SCH (17:01)
[2025-07-29] MEDS: ACETAMINOPHEN 325MG TABLET PO PRN (21:38)
[2025-07-30] VITALS (12 sets, daily range): BP systolic 118–157; BP diastolic 75–85; PULSE 74–100; RESP 18–29; TEMP 36.3–36.9; O2SAT 92–98
[2025-07-30 07:11] LABS: BASOPHILS % 0.6 % (0.0-2.0); EOSINOPHILS % 0.0 % (0.0-5.0); HEMATOCRIT. 42.9 % (36.0-48.0); HEMOGLOBIN. 14.1 g/dL (12.0-16.0); LYMPHOCYTES % 13.1 % (20.0-50.0); MEAN PLATELET VOLUME 10.1 fl (7.4-10.4); MONOCYTES % 5.7 % (2.0-8.0); NEUTROPHILS % 80.6 % (40.0-76.0); PLATELET 254 x1000/uL (130-400); RED BLOOD CELL COUNT 4.77 mill/uL (4.2-5.4); RED CELL DISTRIBUTION WIDTH 13.6 % (11.6-14.6)
[2025-07-30 07:24] LABS: CREATININE 0.7 mg/dL (0.6-1.0)
[2025-07-30 07:25] LABS: UREA NITROGEN BLOOD 15 mg/dL (9-23)
[2025-07-30] MEDS ORDERED: RACEPINEPHRINE 2.25% 0.5ML NEB VIAL HHN PRN (13:30)
[2025-07-31] VITALS (13 sets, daily range): BP systolic 129–158; BP diastolic 71–94; PULSE 20–104; RESP 18–31; TEMP 36.6–37; O2SAT 94–98
[2025-07-31 07:38] LABS: BASOPHILS % 0.6 % (0.0-2.0); EOSINOPHILS % 0.0 % (0.0-5.0); HEMATOCRIT. 43.4 % (36.0-48.0); HEMOGLOBIN. 14.1 g/dL (12.0-16.0); LYMPHOCYTES % 14.4 % (20.0-50.0); MEAN PLATELET VOLUME 10.6 fl (7.4-10.4); MONOCYTES % 3.1 % (2.0-8.0); NEUTROPHILS % 81.9 % (40.0-76.0); PLATELET 270 x1000/uL (130-400); RED BLOOD CELL COUNT 4.82 mill/uL (4.2-5.4); RED CELL DISTRIBUTION WIDTH 14.1 % (11.6-14.6)
[2025-07-31 07:58] LABS: CREATININE 0.7 mg/dL (0.6-1.0)
[2025-07-31 07:59] LABS: UREA NITROGEN BLOOD 17 mg/dL (9-23)
[2025-07-31 08:01] LABS: PHOSPHORUS 4.3 mg/dL (2.5-4.9)
[2025-07-31] MEDS: ACETAMINOPHEN 325MG TABLET PO PRN (11:11)
[2025-08-01] VITALS (13 sets, daily range): BP systolic 128–156; BP diastolic 67–88; PULSE 75–97; RESP 16–22; TEMP 36.1–37; O2SAT 89–98
[2025-08-01 08:24] LABS: HEMATOCRIT. 44.1 % (36.0-48.0); HEMOGLOBIN. 14.4 g/dL (12.0-16.0); MEAN PLATELET VOLUME 9.4 fl (7.4-10.4); PLATELET 270 x1000/uL (130-400); RED BLOOD CELL COUNT 4.88 mill/uL (4.2-5.4); RED CELL DISTRIBUTION WIDTH 14.2 % (11.6-14.6)
[2025-08-01 08:36] LABS: CREATININE 0.6 mg/dL (0.6-1.0)
[2025-08-01 08:37] LABS: UREA NITROGEN BLOOD 15 mg/dL (9-23)
[2025-08-01] MEDS ORDERED: IOHEXOL-300 100 ML BOTTLE ONE (15:12)
[2025-08-01 18:04] LABS: BG BASE EXCESS 7.8 mmol/L (-2.0-3.0); BG CARBOXYHEMOGLOBIN 1.5 % (0.5-1.5); BG DEOXYHEMOGLOBIN 12.5 % (0.0-5.0); BG FRACTION INSPIRED OXYGEN 21; BG HCO3 ACT 33.2 mmol/L (21.0-28.0); BG METHEMOGLOBIN 0.1 % (0.5-1.5); BG OXYGEN SATURATION 87.3 % (94.0-98.0); BG OXYHEMOGLOBIN 85.9 % (94.0-98.0); BG PCO2 48.7 mmHg (32.0-45.0); BG PH 7.452 (7.350-7.450); BG PO2 49.5 mmHg (83.0-108.0); BG SAMPLE SITE LEFT RADIAL; BG TOTAL HEMOGLOBIN 15.4 g/dL (12.0-16.0); BG VENT MODE ROOM AIR
[2025-08-01 20:05] LABS: LYMPHOCYTES % MANUAL 10.0 % (20.0-60.0); MONOCYTES % MANUAL 5.0 % (2.0-8.0); NEUTROPHILS % MANUAL 85.0 % (45.0-75.0); PLATELET ESTIMATE NORMAL
[2025-08-02] VITALS (10 sets, daily range): BP systolic 112–148; BP diastolic 51–89; PULSE 69–104; RESP 14–36; TEMP 36.4–37.1; O2SAT 94–99
[2025-08-02] MEDS ORDERED: IPRATROPIUM BROMIDE (0.02%) 0.5MG/2.5ML NEB ONE ×2 (09:48→12:22)
[2025-08-02] MEDS ORDERED: ALBUTEROL (0.5%) 2.5MG/0.5ML NEB HHN ONE ×2 (09:48→12:22)
[2025-08-02 13:09] LABS: AMPHETAMINE SCREEN Negative ng/mL (Cutoff:50); BARBITURATE SCREEN Negative ug/mL (Cutoff:0.1); BENZODIAZEPINE SCREEN Negative ng/mL (Cutoff:20); CANNABINOID SCREEN Negative ng/mL (Cutoff:5); OPIATES SCREEN Negative ng/mL (Cutoff:5); OXYCODONE SCREEN Negative ng/mL (Cutoff:5)
[2025-08-02] MEDS: ATORVASTATIN CALCIUM 40MG TABLET PO SCH (21:44)
[2025-08-03] VITALS (11 sets, daily range): BP systolic 116–145; BP diastolic 54–98; PULSE 67–100; RESP 12–28; TEMP 36.4–37; O2SAT 94–98
[2025-08-03] MEDS: IPRATROPIUM/ALBUTEROL 0.5-3(2.5)MG/3ML NEB HHN SCH (09:10)
[2025-08-03] MEDS ORDERED: ALBU90AE INH (14:07)
[2025-08-03] MEDS ORDERED: FURO-151 MT (14:07)
[2025-08-03] MEDS ORDERED: FLUT1DIS3 INH (14:07)
[2025-08-03] MEDS ORDERED: MONT-46 PO (14:07)
[2025-08-03] MEDS ORDERED: P20 MT (14:07)
[2025-08-04] VITALS (8 sets, daily range): BP systolic 100–114; BP diastolic 48–59; PULSE 75–90; RESP 17–21; TEMP 36.7–37.2; O2SAT 92–95
[2025-08-07 19:09] LABS: PHENCYCLIDINE CONFIRMATION Positive (.); PHENCYCLIDINE SCREEN ++POSITIVE++ ng/mL (Cutoff:8)
== END 2025-08-04 18:06 | disposition home health service (06) | DRG 189 ==
LOC: ER 14:10 → EDBEDREQTM 15:13 → EDBEDREQ 15:13 → ENRESERV 15:24 → 3WST 15:33
PROVIDERS: ADMIT Internal Medicine; ATTEND Internal Medicine
PROC: 5A09357 Assistance with Respiratory Ventilation, Less than 24 Consecutive Hours, Continuous Positive Airway Pressure (ICD-10-PCS; 2025-07-31)
PROC: 5A09357 Assistance with Respiratory Ventilation, Less than 24 Consecutive Hours, Continuous Positive Airway Pressure (ICD-10-PCS; principal; 2025-08-01)
DX: J96.01 Acute respiratory failure with hypoxia (principal); J44.1 Chronic obstructive pulmonary disease with (acute) exacerbation; I10 Essential (primary) hypertension; E78.00 Pure hypercholesterolemia, unspecified; Z20.822 Contact with and (suspected) exposure to COVID-19; F16.90 Hallucinogen use, unspecified, uncomplicated; Z87.891 Personal history of nicotine dependence
CPT/HCPCS: 36415; 36600; 70491; 71045; 71260; 80048; 80305; 80307; 81003; 82375; 82805; 83735; 83880; 84100; 84145; 84484; 85025; 87426; 87804; 93005; 94070; 94640; 94660; 94664; 98960; 99291; A4606; J1650; J1938; J2919; J3475; J3490; J7626; Q9967